=== PATIENT | male | born 1935 | race Caucasian/White ===

== ENCOUNTER 2024-06-11 20:31 | Inpatient (IN) | payer MEDICARE, OTHER ==
[~2024-06-11] VITALS: Ht 180.3 cm; Wt 80.7 kg
[2024-06-11 20:55] LABS: BASOPHILS # (AUTO) 0.1 X10'3 (0-0.2); BASOPHILS % (AUTO) 0.7 % (0-1); EOSINOPHILS # (AUTO) 0.4 X10'3 (0-0.9); EOSINOPHILS % (AUTO) 3.6 % (0-6); HEMATOCRIT 30.3 % (42.0-52.0); HEMOGLOBIN 9.5 g/dl (14.0-17.9); LYMPHOCYTES # (AUTO) 2.7 X10'3 (1.1-4.8); LYMPHOCYTES % (AUTO) 24.1 % (21-51); MEAN CORPUSCULAR HEMOGLOBIN 21.1 PG (27.0-31.0); MEAN CORPUSCULAR HGB CONC 31.4 g/dL (33.0-36.5); MEAN CORPUSCULAR VOLUME 67.1 FL (78-98); MEAN PLATELET VOLUME 8.2 FL (7.4-10.4); MONOCYTES # (AUTO) 1.4 X10'3 (0-0.9); MONOCYTES % (AUTO) 12.4 % (2-12); NEUTROPHILS # (AUTO) 6.7 X10'3 (1.8-7.7); NEUTROPHILS % (AUTO) 59.2 % (42-75); PLATELET COUNT 276 X10'3 (140-440); RED BLOOD COUNT 4.51 X10'6 (4.70-6.10); RED CELL DISTRIBUTION WIDTH 18.4 % (11.5-14.5); WHITE BLOOD COUNT 11.3 X10'3 (4.5-11.0)
[2024-06-11 21:05] LABS: ALANINE AMINOTRANSFERASE 19 U/L (12-78); ALBUMIN 3.6 G/DL (3.4-5.0); ALBUMIN/GLOBULIN RATIO 0.8 (1.1-1.5); ALKALINE PHOSPHATASE 127 IU/L (46-116); ANION GAP 11 (8-16); ASPARTATE AMINO TRANSFERASE 12 U/L (10-37); BILIRUBIN,TOTAL 0.3 MG/DL (0.1-1.0); BLOOD UREA NITROGEN 34 MG/DL (7-18); BUN/CREATININE RATIO 20.6 (10.0-20.0); CALCIUM 8.4 MG/DL (8.5-10.1); CHLORIDE 109 MMOL/L (99-107); CREATININE 1.65 MG/DL (0.60-1.10); GLUCOSE 131 MG/DL (70-104); POTASSIUM 4.9 MMOL/L (3.5-5.1); SODIUM 144 MMOL/L (135-145); TOTAL CARBON DIOXIDE 23.7 MMOL/L (24-32); TOTAL PROTEIN 8.4 G/DL (6.4-8.2); eCRCL 33 ML/MIN; eGFR 40 ML/MIN
[2024-06-11 21:12] LABS: PRO BRAIN NATRIURETIC PEPTIDE 1696 PG/ML (0-450)
[2024-06-11 21:16] LABS: ANISOCYTOSIS 2+; BURR CELLS FEW; ELLIPTOCYTES FEW; MICROCYTOSIS 2+; PLATELET ESTIMATE NORMAL
[2024-06-11] MEDS: morphine 4 MG/ML inj SYRINge IV ONE (21:47)
[2024-06-11] MEDS: CefTRIAXone 2gm/D5W 50ml BAG 50 ML IV ONE (21:48)
[2024-06-11] MEDS: normal saline 1000ml 1,000 ML IV ONE (21:48)
[2024-06-11] MEDS: azithromycin/NS 500mg/250ml 250 ML IV ONE (21:55)
[2024-06-11] MEDS: ondansetron/PF 4mg/2ml inj IV ONE (22:05)
[2024-06-11] MEDS: ipratropium/albuterol 3ml nebule NEB ONE (22:21)
[2024-06-11 22:22] VITALS: PULSE 66; RESP 20; O2SAT 98
[2024-06-11 22:30] VITALS: PULSE 72; RESP 22
[2024-06-11] MEDS ORDERED: magnesium sulf-water 4G/100mL 100 ML IV PRN (22:40)
[2024-06-11] MEDS ORDERED: magnesium sulf-water 2g/50mL 50 ML IV PRN (22:40)
[2024-06-11] MEDS ORDERED: ondansetron/PF 4mg/2ml inj IV PRN (22:40)
[2024-06-11] MEDS ORDERED: morphine 2 MG/ML inj. syringe IV PRN ×2 (22:40)
[2024-06-11] MEDS ORDERED: HYDROcodone/acetaminophen 10/325mg tab PO PRN (22:40)
[2024-06-11] MEDS ORDERED: HYDROcodone/acetaminophen 5mg/325mg tablet PO PRN (22:40)
[2024-06-11] MEDS ORDERED: potassium Cl 40MEQ/1/2NS 520ml 520 ML IV PRN (22:40)
[2024-06-11] MEDS ORDERED: potassium Cl 20 mEq SR tablet PO PRN ×2 (22:40)
[2024-06-11] MEDS ORDERED: acetaminophen 325mg tablet PO PRN (22:40)
[2024-06-11] MEDS ORDERED: magnesium Cl slow-release 64mg tablet PO PRN (22:40)
[2024-06-11] MEDS: ketorolac trometh 15mg/ml vial 15 MG/ML ML IV ONE (23:04)
[2024-06-11] MEDS: furosemide 10 MG/1 ML 10ml inj IV ONE (23:05)
[2024-06-11 23:26] LABS: APTT 27 SECONDS (22-32); PROTHROMBIN TIME 10.6 SECONDS (9.0-12.0)
[2024-06-11 23:32] LABS: CHOL/HDL RATIO 2.4 (0.00-4.99); CHOLESTEROL 127 MG/DL (0-200); HDL CHOLESTEROL 52 MG/DL (35-60); LDL CHOLESTEROL 62 MG/DL (50-100); TRIGLYCERIDES 57 MG/DL (20-135)
[2024-06-11 23:35] LABS: HEMOGLOBIN A1C 5.9 % (4.5-6.2)
[2024-06-12] VITALS (8 sets, daily range): BP systolic 105–155; BP diastolic 44–78; PULSE 57–71; RESP 12–30; TEMP 97.7–99.5; O2SAT 95–98
[2024-06-12] MEDS ORDERED: LISI40TA13 PO (00:14)
[2024-06-12] MEDS ORDERED: ATOR-2 PO (00:14)
[2024-06-12] MEDS: metoprolol tartrate 50mg tablet PO ONE (00:34)
[2024-06-12 03:26] LABS: BASOPHILS # (AUTO) 0.1 X10'3 (0-0.2); BASOPHILS % (AUTO) 0.8 % (0-1); EOSINOPHILS % (AUTO) 0.1 % (0-6); HEMATOCRIT 28.3 % (42.0-52.0); HEMOGLOBIN 8.7 g/dl (14.0-17.9); LYMPHOCYTES # (AUTO) 1.1 X10'3 (1.1-4.8); LYMPHOCYTES % (AUTO) 7.8 % (21-51); MEAN CORPUSCULAR HEMOGLOBIN 20.6 PG (27.0-31.0); MEAN CORPUSCULAR HGB CONC 30.6 g/dL (33.0-36.5); MEAN CORPUSCULAR VOLUME 67.5 FL (78-98); MEAN PLATELET VOLUME 8.4 FL (7.4-10.4); MONOCYTES # (AUTO) 1.6 X10'3 (0-0.9); MONOCYTES % (AUTO) 11.5 % (2-12); NEUTROPHILS # (AUTO) 10.9 X10'3 (1.8-7.7); NEUTROPHILS % (AUTO) 79.8 % (42-75); PLATELET COUNT 247 X10'3 (140-440); RED BLOOD COUNT 4.19 X10'6 (4.70-6.10); RED CELL DISTRIBUTION WIDTH 17.9 % (11.5-14.5); WHITE BLOOD COUNT 13.6 X10'3 (4.5-11.0)
[2024-06-12 03:40] LABS: % IRON SATURATION 4 % (11-46); IRON 9 UG/DL (53-167); TOTAL IRON BINDING CAPACITY 219 UG/DL (259-388)
[2024-06-12 03:51] LABS: ALANINE AMINOTRANSFERASE 19 U/L (12-78); ALBUMIN 3.1 G/DL (3.4-5.0); ALBUMIN/GLOBULIN RATIO 0.7 (1.1-1.5); ALKALINE PHOSPHATASE 99 IU/L (46-116); ANION GAP 11 (8-16); ASPARTATE AMINO TRANSFERASE 14 U/L (10-37); BILIRUBIN,TOTAL 0.4 MG/DL (0.1-1.0); BLOOD UREA NITROGEN 36 MG/DL (7-18); BUN/CREATININE RATIO 20.7 (10.0-20.0); CALCIUM 7.8 MG/DL (8.5-10.1); CHLORIDE 111 MMOL/L (99-107); CREATININE 1.74 MG/DL (0.60-1.10); FERRITIN 309 NG/ML (26-388); GLUCOSE 123 MG/DL (70-104); POTASSIUM 5.4 MMOL/L (3.5-5.1); SODIUM 143 MMOL/L (135-145); TOTAL CARBON DIOXIDE 21.4 MMOL/L (24-32); TOTAL PROTEIN 7.4 G/DL (6.4-8.2); eCRCL 31 ML/MIN; eGFR 37 ML/MIN
[2024-06-12] MEDS: K and/or MAG REPLACEMENT MC SCH (08:00)
[2024-06-12] MEDS: docusate sod 100mg capsule PO SCH (08:51)
[2024-06-12] MEDS: furosemide 20 MG/2 ML vial IV SCH (08:51)
[2024-06-12 09:47] LABS: LACTATE DEHYDROGENASE 211 U/L (85-227)
[2024-06-12 13:04] LABS: BILIRUBIN,URINE NEGATIVE (Neg); CLARITY,URINE CLEAR (Clear); COLOR,URINE YELLOW (Yellow); GLUCOSE, URINE NEGATIVE (Neg); KETONES,URINE NEGATIVE (Neg); LEUKOCYTE ESTERASE ,URINE NEGATIVE (Neg); NITRITES, URINE NEGATIVE (Neg); OCCULT BLOOD,URINE NEGATIVE (Neg); PH,URINE 5.5 (4.8-8.0); PROTEIN,URINE NEGATIVE (Neg); UROBILINOGEN,URINE 0.2 E.U/dL (0.2-1.0)
[2024-06-12 13:14] LABS: UA COLLECTION TYPE VOIDED
[2024-06-12] MEDS ORDERED: iron dextran complex inj. 25 MG in normal saline 100ml IV soln 99.5 ML IV ONE (13:15)
[2024-06-12] MEDS ORDERED: albuterol 2.5 MG/3 ML nebule NEB PRN (13:15)
[2024-06-12] MEDS: iron dextran complex inj. 75 MG in normal saline 100ml IV soln 100 ML IV ONE (15:00)
[2024-06-12] MEDS: iron dextran complex inj. 25 MG in normal saline 100ml IV soln 100 ML IV ONE (15:55)
[2024-06-12] MEDS: PATIROMER CALCIUM SORBITEX 8.4 GM POWD.PACK PO ONE (16:52)
[2024-06-12 17:03] LABS: GLUCOSE,BODY FLUID 56 MG/DL; TOTAL PROTEIN,BODY FLUID 3.1 G/DL
[2024-06-12 17:04] LABS: LDH,BODY FLUID 438 U/L
[2024-06-12 17:15] LABS: BFSOURCE LEFT PLEURAL FLD; PLEURAL FLUID PH 7.076 (7.63-7.65)
[2024-06-12 17:39] LABS: BF RBC COUNT 8050 /CU MM; BF WBC COUNT 111 /CU MM (0-1000); BFAPPEAR BLOODY; BFCOLOR RED; BFSOURCE LEFT PLEURAL FLD; BFVOLUME 50 ML; LYMPHOCYTES,BODY FLUID 81 %; NEUTROPHILS,BODY FLUID 4 %
[2024-06-12 17:40] LABS: MONOCYTES,BODY FLUID 15 %
[2024-06-12 18:25] LABS: MAGNESIUM 2.3 MG/DL (1.5-2.4)
[2024-06-12] MEDS ORDERED: doxycycline inj 100 MG in normal saline 100ml IV soln 100 ML IV SCH (20:00)
[2024-06-12] MEDS: aspirin 81mg, enteric-coated 1 TAB TABLET.DR PO ONE (20:27)
[2024-06-12] MEDS: doxycycline inj 100 MG in normal saline 100ml IV soln 100 ML IV ONE (20:36)
[2024-06-12] MEDS: CefTRIAXone/D5W-Rocephin 1gm 50 ML IV SCH (20:37)
[2024-06-12] MEDS ORDERED: azithromycin/NS 500mg/250ml 250 ML IV SCH (21:00)
[2024-06-13 02:00] VITALS: BP 122/62; PULSE 49; RESP 17; TEMP 98; O2SAT 95
[2024-06-13 06:00] VITALS: BP 123/54; PULSE 68; RESP 15; TEMP 98.9; O2SAT 94
[2024-06-13 06:48] LABS: BASOPHILS # (AUTO) 0.1 X10'3 (0-0.2); BASOPHILS % (AUTO) 0.7 % (0-1); EOSINOPHILS # (AUTO) 0.2 X10'3 (0-0.9); EOSINOPHILS % (AUTO) 1.4 % (0-6); HEMATOCRIT 29.8 % (42.0-52.0); HEMOGLOBIN 9.1 g/dl (14.0-17.9); MEAN CORPUSCULAR HEMOGLOBIN 20.6 PG (27.0-31.0); MEAN CORPUSCULAR HGB CONC 30.5 g/dL (33.0-36.5); MEAN CORPUSCULAR VOLUME 67.4 FL (78-98); MEAN PLATELET VOLUME 8.5 FL (7.4-10.4); MONOCYTES # (AUTO) 1.5 X10'3 (0-0.9); MONOCYTES % (AUTO) 13.1 % (2-12); NEUTROPHILS # (AUTO) 7.5 X10'3 (1.8-7.7); NEUTROPHILS % (AUTO) 66.8 % (42-75); PLATELET COUNT 236 X10'3 (140-440); RED BLOOD COUNT 4.43 X10'6 (4.70-6.10); RED CELL DISTRIBUTION WIDTH 17.6 % (11.5-14.5); WHITE BLOOD COUNT 11.3 X10'3 (4.5-11.0)
[2024-06-13 07:04] LABS: ALANINE AMINOTRANSFERASE 14 U/L (12-78); ALBUMIN/GLOBULIN RATIO 0.8 (1.1-1.5); ALKALINE PHOSPHATASE 85 IU/L (46-116); ANION GAP 11 (8-16); ASPARTATE AMINO TRANSFERASE 10 U/L (10-37); BILIRUBIN,TOTAL 0.8 MG/DL (0.1-1.0); BLOOD UREA NITROGEN 39 MG/DL (7-18); BUN/CREATININE RATIO 21.3 (10.0-20.0); CALCIUM 8.3 MG/DL (8.5-10.1); CHLORIDE 108 MMOL/L (99-107); CREATININE 1.83 MG/DL (0.60-1.10); GLUCOSE 113 MG/DL (70-104); LACTATE DEHYDROGENASE 211 U/L (85-227); MAGNESIUM 2.2 MG/DL (1.5-2.4); SODIUM 139 MMOL/L (135-145); TOTAL CARBON DIOXIDE 20.1 MMOL/L (24-32); eCRCL 30 ML/MIN; eGFR 35 ML/MIN
[2024-06-13 08:28] LABS: ABSOLUTE RETICS # < 6000 /CUMM (23000-93000); RETICULOCYTE % (AUTO) 0.8 % (0.5-1.5)
[2024-06-13] MEDS: doxycycline inj 100 MG in normal saline 100ml IV soln 100 ML IV SCH (08:44)
[2024-06-13] MEDS: aspirin 81mg, enteric-coated 1 TAB TABLET.DR PO SCH (08:52)
[2024-06-13] MEDS: PATIROMER CALCIUM SORBITEX 8.4 GM POWD.PACK PO SCH (09:54)
[2024-06-13] MEDS: iron dextran complex inj. 100 MG in normal saline 100ml IV soln 100 ML IV SCH (10:28)
[2024-06-13] MEDS: magnesium hydroxide 30ml (MOM) UD suspension PO PRN (14:44)
[2024-06-13 15:00] VITALS: BP 156/66; PULSE 64; RESP 16; TEMP 99.5; O2SAT 97
[2024-06-13] MEDS: furosemide 20 MG/2 ML vial IV SCH (15:40)
[2024-06-13] MEDS: bisacodyl 10mg suppository rectal RC STA (17:51)
[2024-06-13 18:00] VITALS: BP 150/57; PULSE 67; RESP 18; TEMP 97.6; O2SAT 96
[2024-06-13 21:23] LABS: OCCULT BLOOD STOOL NEGATIVE (Neg)
[2024-06-13 22:00] VITALS: BP 147/54; PULSE 55; RESP 15; TEMP 97.8; O2SAT 96
[2024-06-14 02:00] VITALS: BP 121/49; PULSE 61; RESP 16; TEMP 97.4; O2SAT 95
[2024-06-14 06:00] VITALS: BP 131/37; PULSE 45; RESP 17; TEMP 97.6; O2SAT 94
[2024-06-14 06:41] LABS: BASOPHILS # (AUTO) 0.1 X10'3 (0-0.2); BASOPHILS % (AUTO) 0.5 % (0-1); EOSINOPHILS # (AUTO) 0.5 X10'3 (0-0.9); EOSINOPHILS % (AUTO) 4.9 % (0-6); HEMATOCRIT 27.2 % (42.0-52.0); HEMOGLOBIN 8.7 g/dl (14.0-17.9); LYMPHOCYTES # (AUTO) 1.7 X10'3 (1.1-4.8); LYMPHOCYTES % (AUTO) 18.1 % (21-51); MEAN CORPUSCULAR HEMOGLOBIN 21.2 PG (27.0-31.0); MEAN CORPUSCULAR VOLUME 66.3 FL (78-98); MEAN PLATELET VOLUME 8.5 FL (7.4-10.4); MONOCYTES # (AUTO) 1.1 X10'3 (0-0.9); MONOCYTES % (AUTO) 11.2 % (2-12); NEUTROPHILS # (AUTO) 6.3 X10'3 (1.8-7.7); NEUTROPHILS % (AUTO) 65.3 % (42-75); PLATELET COUNT 247 X10'3 (140-440); RED BLOOD COUNT 4.11 X10'6 (4.70-6.10); RED CELL DISTRIBUTION WIDTH 17.7 % (11.5-14.5); WHITE BLOOD COUNT 9.6 X10'3 (4.5-11.0)
[2024-06-14 06:51] LABS: ALANINE AMINOTRANSFERASE 15 U/L (12-78); ALBUMIN 2.8 G/DL (3.4-5.0); ALBUMIN/GLOBULIN RATIO 0.7 (1.1-1.5); ALKALINE PHOSPHATASE 86 IU/L (46-116); ANION GAP 9 (8-16); ASPARTATE AMINO TRANSFERASE 12 U/L (10-37); BILIRUBIN,TOTAL 0.5 MG/DL (0.1-1.0); BLOOD UREA NITROGEN 38 MG/DL (7-18); BUN/CREATININE RATIO 23.5 (10.0-20.0); CALCIUM 8.4 MG/DL (8.5-10.1); CHLORIDE 109 MMOL/L (99-107); CREATININE 1.62 MG/DL (0.60-1.10); GLUCOSE 106 MG/DL (70-104); MAGNESIUM 2.1 MG/DL (1.5-2.4); POTASSIUM 4.8 MMOL/L (3.5-5.1); SODIUM 141 MMOL/L (135-145); TOTAL CARBON DIOXIDE 23.1 MMOL/L (24-32); TOTAL PROTEIN 6.8 G/DL (6.4-8.2); eCRCL 34 ML/MIN; eGFR 41 ML/MIN
[2024-06-14 07:52] LABS: ANISOCYTOSIS 1+; PLATELET ESTIMATE NORMAL
[2024-06-14 07:53] LABS: ELLIPTOCYTES FEW; MICROCYTOSIS 2+; POIKILOCYTOSIS FEW
[2024-06-14 11:00] VITALS: BP 91/50; PULSE 62; RESP 17; TEMP 97.2; O2SAT 94
[2024-06-14 15:00] VITALS: BP 135/52; PULSE 67; RESP 19; TEMP 97.2; O2SAT 95
[2024-06-14 17:41] LABS: CREATININE 1.62 MG/DL (0.60-1.10)
[2024-06-14 18:00] VITALS: BP 165/70; PULSE 62; RESP 18; TEMP 97.1; O2SAT 96
[2024-06-14 22:00] VITALS: BP 151/56; PULSE 61; RESP 21; TEMP 98.6; O2SAT 92
[2024-06-15 02:00] VITALS: BP 122/44; PULSE 60; RESP 18; TEMP 98.4; O2SAT 97
[2024-06-15 06:42] LABS: BASOPHILS # (AUTO) 0.1 X10'3 (0-0.2); BASOPHILS % (AUTO) 0.8 % (0-1); EOSINOPHILS # (AUTO) 0.5 X10'3 (0-0.9); EOSINOPHILS % (AUTO) 6.4 % (0-6); HEMATOCRIT 28.9 % (42.0-52.0); HEMOGLOBIN 9.1 g/dl (14.0-17.9); LYMPHOCYTES # (AUTO) 1.7 X10'3 (1.1-4.8); LYMPHOCYTES % (AUTO) 22.5 % (21-51); MEAN CORPUSCULAR HEMOGLOBIN 21.1 PG (27.0-31.0); MEAN CORPUSCULAR HGB CONC 31.5 g/dL (33.0-36.5); MEAN CORPUSCULAR VOLUME 66.9 FL (78-98); MEAN PLATELET VOLUME 8.3 FL (7.4-10.4); MONOCYTES # (AUTO) 0.8 X10'3 (0-0.9); MONOCYTES % (AUTO) 10.8 % (2-12); NEUTROPHILS # (AUTO) 4.6 X10'3 (1.8-7.7); NEUTROPHILS % (AUTO) 59.5 % (42-75); PLATELET COUNT 283 X10'3 (140-440); RED BLOOD COUNT 4.32 X10'6 (4.70-6.10); RED CELL DISTRIBUTION WIDTH 17.4 % (11.5-14.5); WHITE BLOOD COUNT 7.7 X10'3 (4.5-11.0)
[2024-06-15 06:59] LABS: ALANINE AMINOTRANSFERASE 33 U/L (12-78); ALBUMIN 2.6 G/DL (3.4-5.0); ALBUMIN/GLOBULIN RATIO 0.7 (1.1-1.5); ALKALINE PHOSPHATASE 84 IU/L (46-116); ANION GAP 9 (8-16); ASPARTATE AMINO TRANSFERASE 27 U/L (10-37); BILIRUBIN,TOTAL 0.4 MG/DL (0.1-1.0); BLOOD UREA NITROGEN 39 MG/DL (7-18); BUN/CREATININE RATIO 25.8 (10.0-20.0); CALCIUM 8.2 MG/DL (8.5-10.1); CHLORIDE 109 MMOL/L (99-107); CREATININE 1.51 MG/DL (0.60-1.10); GLUCOSE 106 MG/DL (70-104); MAGNESIUM 2.2 MG/DL (1.5-2.4); POTASSIUM 4.6 MMOL/L (3.5-5.1); SODIUM 141 MMOL/L (135-145); TOTAL PROTEIN 6.6 G/DL (6.4-8.2); eCRCL 37 ML/MIN; eGFR 44 ML/MIN
[2024-06-15 07:00] VITALS: BP 120/44; PULSE 60; RESP 18; TEMP 98.4; O2SAT 96
[2024-06-15] MEDS ORDERED: FER325T PO (07:47)
[2024-06-15] MEDS ORDERED: PANT40TA54 PO (07:47)
[2024-06-15] MEDS ORDERED: FURO-150 PO (07:47)
[2024-06-15] MEDS ORDERED: LEVO750T68 PO (07:47)
[2024-06-15] MEDS ORDERED: AMLO10TA13 PO (07:47)
[2024-06-15] MEDS ORDERED: APIX2.5T PO (07:47)
[2024-06-15 08:00] VITALS: RESP 16; O2SAT 96
[2024-06-15] MEDS ORDERED: apixaban 2.5mg tablet PO SCH (08:00)
[2024-06-15] MEDS ORDERED: amLODIPine 5mg tablet PO SCH (08:00)
[2024-06-15] MEDS ORDERED: apixaban 5mg tablet PO SCH (08:00)
[2024-06-15] MEDS ORDERED: ferrous sulfate 325mg tablet PO SCH (08:00)
[2024-06-15] MEDS ORDERED: SACU1TAB PO (14:27)
== END 2024-06-15 12:30 | disposition home or self-care (01) | DRG 871 ==
LOC: ER 20:33 → ED HOLD 22:47 → PCU 3S 06-12 03:22
PROVIDERS: ADMIT Internal Medicine; ATTEND Nurse Practitioner Family
PROC: 0W9B30Z Drainage of Left Pleural Cavity with Drainage Device, Percutaneous Approach (ICD-10-PCS; principal; 2024-06-12)
DX: A41.9 Sepsis, unspecified organism (principal); I50.33 Acute on chronic diastolic (congestive) heart failure; J18.9 Pneumonia, unspecified organism; I13.0 Hypertensive heart and chronic kidney disease with heart failure and stage 1 through stage 4 chronic kidney disease, or unspecified chronic kidney disease; I48.92 Unspecified atrial flutter; N17.9 Acute kidney failure, unspecified; J91.8 Pleural effusion in other conditions classified elsewhere; Z20.822 Contact with and (suspected) exposure to COVID-19; D50.9 Iron deficiency anemia, unspecified; E78.5 Hyperlipidemia, unspecified; E87.5 Hyperkalemia; I16.0 Hypertensive urgency; I25.10 Atherosclerotic heart disease of native coronary artery without angina pectoris; I27.20 Pulmonary hypertension, unspecified; I48.91 Unspecified atrial fibrillation; N18.9 Chronic kidney disease, unspecified; Z51.5 Encounter for palliative care; Z79.01 Long term (current) use of anticoagulants; Z79.899 Other long term (current) drug therapy; Z82.49 Family history of ischemic heart disease and other diseases of the circulatory system
CPT/HCPCS: 32555; 36415; 71045; 71250; 76770; 80053; 80061; 81003; 82272; 82575; 82728; 82945; 83036; 83540; 83550; 83605; 83615; 83735; 83880; 83986; 84132; 84145; 84157; 84466; 84484; 85008; 85025; 85045; 85610; 85651; 85730; 87040; 87070; 87075; 87081; 87102; 87502; 87503; 87811; 89051; 93005; 93306; 94640; 94760; 96365; 96367; 96375; 97161; 97530; 99285; A4615; G0378; J0456; J0696; J1750; J1885; J1940; J2270; J2405; J3490; J7030; J7040